=== PATIENT | female | born 1990 | race Caucasian/White ===

== ENCOUNTER 2017-05-25 12:14 | Emergency (ER) | payer OTHER, MEDICAID ==
[~2017-05-25] VITALS: Ht 160 cm; Wt 59.0 kg
[~2017-05-25 12:14] MED LIST: AMOXICILLIN875 MG PO; BACTRIM DS TAB1 EACH PO; CLEOCIN HCL150 MG PO; CORTISPORIN-TC10 ML OT; KEFLEX500 MG PO; MEDROLDOSEPACK PO; METROGEL-VAGINA70 GM VG; NOHOMEMEDICATIONS; NORCO 5-325 TA1 EACH PO; PERCOCET 5-3251 EACH PO; PRENATAL; ZOFRAN ODT4 MG PO; ZPAK PO
[2017-05-25 12:23] VITALS: BP 150/87
[2017-05-25] MEDS ORDERED: TRINESSA1 EACH PO (12:25)
[2017-05-25] MEDS ORDERED: MUPIROCIN22 GM TOP (12:45)
[2017-05-25] MEDS ORDERED: BACTRIM DS TAB1 EACH PO (12:45)
== END 2017-05-25 12:55 | disposition home or self-care (01) ==
LOC: M.ERS 12:14
DX: L02.01 Cutaneous abscess of face (principal); F17.210 Nicotine dependence, cigarettes, uncomplicated

== ENCOUNTER 2019-01-17 08:26 | Emergency (ER) | payer OTHER, MEDICAID ==
[~2019-01-17] VITALS: Ht 162.6 cm; Wt 65.8 kg
[~2019-01-17 08:26] MED LIST changes: +MUPIROCIN22 GM TOP; +TRINESSA1 EACH PO
[2019-01-17] MEDS ORDERED: AMOXICILLIN500 M1 PO (09:07)
[2019-01-17] MEDS ORDERED: PREDNISONE50 MG PO (09:07)
[2019-01-17 09:56] VITALS: BP 124/72
== END 2019-01-17 09:56 | disposition home or self-care (01) ==
LOC: M.ERS 08:26
DX: J06.9 Acute upper respiratory infection, unspecified (principal); F17.210 Nicotine dependence, cigarettes, uncomplicated; Z98.890 Other specified postprocedural states

== ENCOUNTER 2019-10-04 18:43 | Emergency (ER) | payer OTHER, MEDICAID ==
[~2019-10-04] VITALS: Ht 162.6 cm; Wt 63.5 kg
[~2019-10-04 18:43] MED LIST changes: +AMOXICILLIN500 M1 PO; +PREDNISONE50 MG PO
[2019-10-04 18:51] VITALS: BP 138/77
[2019-10-04] MEDS ORDERED: CIPRODEX OTIC7.5 ML OTIC (19:17)
== END 2019-10-04 19:23 | disposition home or self-care (01) ==
LOC: M.ERS 18:43
DX: H60.91 Unspecified otitis externa, right ear (principal); F17.210 Nicotine dependence, cigarettes, uncomplicated; Z98.890 Other specified postprocedural states